=== PATIENT | male | born 1985 | race Caucasian/White ===

== ENCOUNTER 2018-08-15 21:36 | Emergency (ER) | payer OTHER ==
[2018-08-15] MEDS ORDERED: HYDROmorphone 1 MG/ML CARPUJECT IM STA (21:48)
[2018-08-15] MEDS ORDERED: KETOROLAC 60 MG/2 ML VIAL IM STA (21:48)
[2018-08-15] MEDS ORDERED: CYCLOBENZAPRINE 10 MG Prepack 2 PO PRN (21:49)
[2018-08-15] MEDS ORDERED: HYDROcod/ACET 5/325 Prepack 4 PO STA (21:49)
--- NOTE | 2018-08-15 21:50 | ED Physician Documentation ---
PD HPI BACK INJURY - Stated complaint Stated Complaint: LOWER BACK PX - History obtained from History obtained from: Patient - History of Present Illness Location: Right (He felt a pull in the right low back today while lifting boxes as he is in the process of moving. The pain does not radiate. It is not associated with weakness, numbness, tingling, saddle anesthesia, or fevers. He tried ibuprofen without relief.) Review of Systems Constitutional: reports: Reviewed and negative Cardiac: reports: Reviewed and negative Respiratory: reports: Reviewed and negative PD PAST MEDICAL HISTORY - Past Medical History Past Medical History: No - Past Surgical History Past Surgical History: Yes - Present Medications Home Medications: Ambulatory Orders Medication Instructions Recorded Confirmed Cyclobenzaprine [Flexeril] 10 mg PO TID PRN #20 tablet 08/15/18 Hydrocodone/Acetaminophen 1 - 2 each PO Q6H PRN #10 tablet 08/15/18 [Hydrocodon-Acetaminophen 5-325] - Allergies Allergies/Adverse Reactions: Allergies Allergy/AdvReac Type Severity Reaction Status Date / Time No Known Drug Allergies Allergy Verified 08/15/18 21:43 - Social History Does the pt smoke?: No Smoking Status: Never smoker Does the pt drink ETOH?: No Does the pt have substance abuse?: No - Immunizations Immunizations are current?: Yes - POLST Patient has POLST: No PD ED PE NORMAL - Vitals Vital signs reviewed: Yes - General General: Alert and oriented X 3, No acute distress - Back Back: No spinal TTP, Other (Mild muscular tenderness of the right low back and winces with motion. Comfortable at rest. Normal gait. The patient has equal and normal Achilles and patellar reflexes bilaterally. Normal sensation in all areas of the legs. Patient denies saddle anesthesia. Normal strength in flexion-extension at the ankles, knees, and flexion of the hips.) - Neuro Neuro: Alert and oriented X 3, Normal speech - Psych Psych: Normal mood, Normal affect Results - Vitals Vitals: Vital Signs - 24 hr 08/15/18 21:39 Temperature 36.8 C Heart Rate 79 Respiratory 16 Rate Blood Pressure 154/95 H O2 Saturation 98 Oxygen O2 Source Room air PD MEDICAL DECISION MAKING - ED course ED course: This patient has seemingly uncomplicated musculoskeletal back pain. The patient has no "red flags." Specifically denies IV drug use, fevers, incontinence, saddle anesthesia. Spinal epidural abscess was considered, given that the patient has no fever, is not diabetic, has no spinal tenderness, does not use IV drugs, and has no bilateral neurologic symptoms, the diagnosis of spinal epidural abscess is considered exceedingly unlikely. Departure - Departure Disposition: 01 Home, Self Care Clinical Impression: Back pain Qualifiers: Back pain location: low back pain Chronicity: acute Back pain laterality: right Sciatica presence: without sciatica Qualified Code(s): M54.5 - Low back pain Condition: Good Record reviewed to determine appropriate education?: Yes Instructions: ED Low Back Pain Injury Prescriptions: Cyclobenzaprine [Flexeril] 10 mg PO TID PRN #20 tablet PRN Reason: Spasms Hydrocodone/Acetaminophen [Hydrocodon-Acetaminophen 5-325] 1 - 2 each PO Q6H PRN #10 tablet PRN Reason: pain Comments: Call your doctor to arrange a follow-up appointment, make the next available appointment. In the interim, return anytime if worse or if new symptoms develop. Do not drink or drive while taking narcotic pain medication. Note that many narcotic pain relievers also contain Tylenol/acetaminophen. Please ensure that your total dose of acetaminophen from all sources does not exceed 3 g (3000 mg) per day. You may get constipated while on this medication. Take a stool softener such as Colace twice a day while you are on it. Also add an bopr-fot-[id number] laxative such as senna or MiraLAX on any day that you do not have a bowel movement. If you received a narcotic pain medication or sedative while in the emergency department, do not drive for the next 24 hours. Your blood pressure was elevated today on check into the emergency department. This does not mean that you have hypertension, it is a common phenomenon to come to the emergency department and have elevated blood pressure. I recommend that you see your primary care physician within the week to have it rechecked when you are feeling better.
[2018-08-15 22:21] VITALS: BP 140/90
== END 2018-08-15 22:20 | disposition home or self-care (01) ==
LOC: ED 21:36
DX: M54.5 Low back pain (principal); R03.0 Elevated blood-pressure reading, without diagnosis of hypertension
CPT/HCPCS: 96372; 99283; J1170

== ENCOUNTER 2019-05-13 16:57 | Emergency (ER) | payer OTHER ==
[2019-05-13 17:09] VITALS: BP 135/84
--- NOTE | 2019-05-13 17:30 | ED Physician Documentation ---
PD HPI UPPER EXT INJURY - Stated complaint Stated Complaint: RT HAND LAC - Chief complaint Chief Complaint: Laceration - History obtained from History obtained from: Patient - History of Present Illness Location: Right (He cut his right pinky finger on a vegetable slicer yesterday at home. He is up-to-date on tetanus. He is mostly here because the Band-Aid is stuck on and he would like it removed.) Review of Systems Constitutional: reports: Reviewed and negative Cardiac: reports: Reviewed and negative Respiratory: reports: Dyspnea PD PAST MEDICAL HISTORY - Past Surgical History Past Surgical History: Yes - Present Medications Home Medications: Ambulatory Orders Medication Instructions Recorded Confirmed Cyclobenzaprine [Flexeril] 10 mg PO TID PRN #20 tablet 08/15/18 Hydrocodone/Acetaminophen 1 - 2 each PO Q6H PRN #10 tablet 08/15/18 [Hydrocodon-Acetaminophen 5-325] - Allergies Allergies/Adverse Reactions: Allergies Allergy/AdvReac Type Severity Reaction Status Date / Time No Known Drug Allergies Allergy Verified 05/13/19 17:06 - Social History Does the pt smoke?: No Smoking Status: Never smoker Does the pt drink ETOH?: No Does the pt have substance abuse?: No - Immunizations Immunizations are current?: Yes - POLST Patient has POLST: No PD ED PE NORMAL - Vitals Vital signs reviewed: Yes - General General: Alert and oriented X 3, No acute distress - Extremities Extremities: Other (After gentle removal of the Band-Aid using saline, there is a skin avulsion of the side of the pinky less than 1 cm. It was irrigated and dressed with Xeroform and tube gauze.) - Neuro Neuro: Alert and oriented X 3, Normal speech Results - Vitals Vitals: Vital Signs - 24 hr 05/13/19 17:06 Temperature 37.1 C Heart Rate 78 Respiratory 14 Rate Blood Pressure 135/84 H O2 Saturation 97 Oxygen O2 Source Room air Departure - Departure Disposition: 01 Home, Self Care Clinical Impression: Skin avulsion Condition: Good Record reviewed to determine appropriate education?: Yes Instructions: ED Laceration Amputation Finger Tip Open Tx
== END 2019-05-13 17:34 | disposition home or self-care (01) ==
LOC: ED 16:57
DX: S61.216A Laceration without foreign body of right little finger without damage to nail, initial encounter (principal); W27.4XXA Contact with kitchen utensil, initial encounter; Y93.G1 Activity, food preparation and clean up
CPT/HCPCS: 99281; 99282

== ENCOUNTER 2021-01-27 21:50 | Emergency (ER) | payer OTHER ==
--- NOTE | 2021-01-28 00:11 | ED Physician Documentation ---
PD HPI SKIN - Stated complaint Stated Complaint: RT THIGH BRUISING - Chief complaint Chief Complaint: Wound - History obtained from History obtained from: Patient - Additional information Additional information: 35-year-old man presents with right inner thigh ecchymosis for the past week that his noticed with spreading downwards today. He states that it is more painful and he does not know how it happened. Denies history of clots, hormone use, bedrest, recent surgery, injury to the thigh. Denies numbness or weakness. Review of Systems Skin: reports: Other (Ecchymosis) Musculoskeletal: denies: Extremity pain Neurologic: denies: Focal weakness, Numbness PD PAST MEDICAL HISTORY - Past Surgical History Past Surgical History: Yes - Allergies Allergies/Adverse Reactions: Allergies Allergy/AdvReac Type Severity Reaction Status Date / Time No Known Drug Allergies Allergy Verified 01/27/21 22:00 - Social History Does the pt smoke?: No Smoking Status: Never smoker Does the pt drink ETOH?: No Does the pt have substance abuse?: No - Immunizations Immunizations are current?: Yes - POLST Patient has POLST: No PD ED PE NORMAL - Vitals Vital signs reviewed: Yes - General General: Alert and oriented X 3, No acute distress, Well developed/nourished - HEENT HEENT: Atraumatic, PERRL, EOMI - Derm Derm: Normal color, Warm and dry, Other (10 x 10 cm area of healing ecchymosis to distal right inner thigh) - Extremities Extremities: Other (2+ bilateral DP and PT pulses. Normal sensation, capillary refill, strength) - Neuro Neuro: Alert and oriented X 3, No motor deficit, No sensory deficit - Psych Psych: Normal mood, Normal affect Results - Vitals Vitals: Vital Signs - 24 hr 01/27/21 01/28/21 21:58 00:18 Temperature 36.4 C L Heart Rate 78 70 Respiratory 14 16 Rate Blood Pressure 142/89 H 129/77 O2 Saturation 97 97 Oxygen O2 Source Room air PD MEDICAL DECISION MAKING - ED course ED course: 35-year-old man presented with ecchymosis of unknown origin for the last week. Ultrasound for DVT was negative. Advised the patient to have follow-up ultrasound in 1 week. Return precautions given. Departure - Departure Disposition: 01 Home, Self Care Clinical Impression: Ecchymosis Condition: Good Instructions: Bruises Contusions Comments: You were seen in the emergency department for posterior right thigh. An ultrasound was performed to evaluate for blood clots and did not show any clots. You need to have a follow-up ultrasound in 1 week in order to definitively rule out clots. Please return to the emergency department if you have any new or worsening symptoms or other concerns. Follow-up with your primary doctor to order the ultrasound. Discharge Date/Time: 01/28/21 00:19
--- NOTE | 2021-01-28 00:12 | Ultrasound Report ---
PROCEDURE: Duplex Ext Veins Right INDICATIONS: ecchymosis R inner thigh TECHNIQUE: Real-time imaging, as well as color and pulse Doppler interrogation, were performed of the lower extr emity deep veins from the inguinal ligament to the popliteal fossa. COMPARISON: None. FINDINGS: The deep veins are normally compressible, and free of intraluminal thrombus. Color and pu lse Doppler demonstrate normal phasic intraluminal flow. There is normal augmentation response to di stal compression maneuver. IMPRESSION: No evidence of DVT in visualized right lower extremity veins. Reviewed by: Rik Aguilera MD on 01/28/2021 12:11 AM PDT Approved by: Rik Aguilera MD on 01/28/2021 12:11 AM PDT Station ID: [id number]
[2021-01-28 00:19] VITALS: BP 129/77
== END 2021-01-28 00:19 | disposition home or self-care (01) ==
LOC: ED 21:50
DX: R58 Hemorrhage, not elsewhere classified (principal)
CPT/HCPCS: 99282; 99284

== ENCOUNTER 2021-07-14 15:15 | Emergency (ER) | payer OTHER ==
[2021-07-14 15:22] VITALS: BP 129/82
--- NOTE | 2021-07-14 15:34 | ED Physician Documentation ---
PD HPI UPPER EXT INJURY - Stated complaint Stated Complaint: POSSIBLE TEAR RIGHT ARM - Chief complaint Chief Complaint: Ext Problem - History obtained from History obtained from: Patient - Additonal information Additional information: Previously healthy 36-year-old gentleman who is active duty in the [employer] he was lifting a motorcycle today and felt a pop in the right bicep and medial elbow. He now has minimal pain at rest but with certain motions it is significant. No other injuries. Review of Systems Constitutional: reports: Reviewed and negative Ears: reports: Reviewed and negative Throat: reports: Reviewed and negative Cardiac: reports: Reviewed and negative Respiratory: reports: Reviewed and negative PD PAST MEDICAL HISTORY - Past Surgical History Past Surgical History: Yes - Allergies Allergies/Adverse Reactions: Allergies Allergy/AdvReac Type Severity Reaction Status Date / Time No Known Drug Allergies Allergy Verified 07/14/21 15:22 - Social History Does the pt smoke?: No Smoking Status: Never smoker Does the pt drink ETOH?: No Does the pt have substance abuse?: No - Immunizations Immunizations are current?: Yes - POLST Patient has POLST: No PD ED PE NORMAL - Vitals Vital signs reviewed: Yes - General General: Alert and oriented X 3, No acute distress - Extremities Extremities: Other (There is no "Abad" deformity of the right bicep. He is tender at the insertion of the bicep into the forearm as well as over the medial epicondyle of the right elbow. He has pain with resisted bicep contraction, but he does have decent strength.) - Neuro Neuro: Alert and oriented X 3, Normal speech Eye Opening: Spontaneous Motor: Obeys Commands Verbal: Oriented GCS Score: 15 - Psych Psych: Normal mood, Normal affect Results - Vitals Vitals: Vital Signs - 24 hr 07/14/21 15:18 Temperature 36.5 C Heart Rate 74 Respiratory 15 Rate Blood Pressure 129/82 H O2 Saturation 99 Oxygen O2 Source Room air Procedures - Splint (location) Right arm Splint applied by: Tech Type of splint: Fiberglass, Posterior Other: Patient tolerated well, No complications, Neurovascular intact, Sling provided PD MEDICAL DECISION MAKING - ED course ED course: 36-year-old gentleman with right arm strain versus partial bicep tear. Does not appear like a complete bicep tear. He is splinted and given a sling and advised on follow-up. Departure - Departure Disposition: Home, Self Care Clinical Impression: Traumatic partial tear of right biceps tendon Condition: Good Record reviewed to determine appropriate education?: Yes Comments: As discussed, hard to say if you have a partial bicep tear versus just a sprain/strain. It does not look at all like a complete biceps tear because with that you generally see a deformity which I do not. Keep the fiberglass splint on and dry, [place]. Return for new or worsening symptoms. Forms: Activity restrictions
== END 2021-07-14 16:20 | disposition home or self-care (01) ==
LOC: ED 15:15
DX: S46.221A Laceration of muscle, fascia and tendon of other parts of biceps, right arm, initial encounter (principal); X50.0XXA Overexertion from strenuous movement or load, initial encounter; Y93.89 Activity, other specified
CPT/HCPCS: 99282